=== PATIENT | female | born 1965 | race Caucasian/White ===

== ENCOUNTER 2023-11-06 15:19 | Outpatient (OUT) | payer OTHER, SELFPAY | END 2023-11-06 15:20 | disposition home or self-care (01) | LOC: SLEEP 15:19 | DX: G47.33 Obstructive sleep apnea (adult) (pediatric) (principal) | CPT/HCPCS: 95806 ==

== ENCOUNTER 2023-11-14 08:54 | Outpatient (OUT) | payer OTHER, SELFPAY ==
--- NOTE | 2023-11-14 09:00 | XR_ITS ---
The [address] [address] Patient Name: DIPAK MARKHAM MRN: [id number] date: 1965 Sex: F Assigned Patient Location: [facility] Current Patient Location: [facility] Accession/Order Number: [id number] Exam Date: 11/14/2023 09:01 Report Date: 11/14/2023 09:48 At the request of: CHRISTI HARRIS Procedure: XR elbow RT min 3V PROCEDURE: XR elbow RT min 3V, XR shoulder RT min 2V HISTORY: Right Elbow Pain , right shoulder pain, fall COMPARISON: None. FINDINGS: BONES:Narrowing of the acromioclavicular joints with prominent cephalad projecting osteophytes. Small undersurface osteophytes. Unremarkable humeral head and glenoid. Normal appearance of the elbow joint. SOFT TISSUES:No visible soft tissue swelling. EFFUSION:None visible. OTHER: Negative. XR/XR elbow RT min 3V IMPRESSION: 1. No acute bone abnormality of the right shoulder and right elbow. 2. Mild degenerative changes of the acromioclavicular joint. Electronically authenticated by: JACLYN POWERS Date: 11/14/2023 09:48
--- NOTE | 2023-11-14 09:00 | XR_ITS ---
The [address] [address] Patient Name: DIPAK MARKHAM MRN: [id number] date: 1965 Sex: F Assigned Patient Location: [facility] Current Patient Location: [facility] Accession/Order Number: [id number] Exam Date: 11/14/2023 09:01 Report Date: 11/14/2023 09:48 At the request of: CHRISTI HARRIS Procedure: XR shoulder RT min 2V PROCEDURE: XR elbow RT min 3V, XR shoulder RT min 2V HISTORY: Right Elbow Pain , right shoulder pain, fall COMPARISON: None. FINDINGS: BONES:Narrowing of the acromioclavicular joints with prominent cephalad projecting osteophytes. Small undersurface osteophytes. Unremarkable humeral head and glenoid. Normal appearance of the elbow joint. SOFT TISSUES:No visible soft tissue swelling. EFFUSION:None visible. OTHER: Negative. XR/XR shoulder RT min 2V IMPRESSION: 1. No acute bone abnormality of the right shoulder and right elbow. 2. Mild degenerative changes of the acromioclavicular joint. Electronically authenticated by: JACLYN POWERS Date: 11/14/2023 09:48
== END 2023-11-14 08:55 | disposition home or self-care (01) ==
PROVIDERS: Visit Provider Nurse Practitioner Family
DX: M25.511 Pain in right shoulder (principal); M25.521 Pain in right elbow
CPT/HCPCS: 73030; 73080

== ENCOUNTER 2023-11-21 08:51 | Outpatient (OUT) | payer OTHER, SELFPAY ==
--- NOTE | 2023-11-21 09:05 | XR_ITS ---
The [address] [address] Patient Name: DIPAK MARKHAM MRN: [id number] date: 1965 Sex: F Assigned Patient Location: [facility] Current Patient Location: [facility] Accession/Order Number: [id number] Exam Date: 11/21/2023 09:12 Report Date: 11/21/2023 09:44 At the request of: CHRISTI HARRIS Procedure: XR ribs RT min 3V w CXR1V EXAMINATION: XR ribs RT min 3V w CXR1V HISTORY: Status post fall COMPARISON: No relevant comparison available. FINDINGS: LUNGS: No significant pulmonary parenchymal abnormalities. PLEURA: No pneumothorax, effusion, or pleural thickening. MEDIASTINUM: No visible mass or adenopathy. CARDIAC: No cardiomegaly or cardiac silhouette abnormality. RIBS: No acute rib fracture OTHER: Negative. XR/XR ribs RT min 3V w CXR1V IMPRESSION: No acute rib fracture Clear lungs Electronically authenticated by: MARY WARD Date: 11/21/2023 09:44
--- OUTSIDE RECORDS SUMMARY | 2023-11-21 09:11 | XMS_ITS | CCD ---
Author Organization [facility] Inform ion [facility] Care Team Providers Care Salesperson [employer] Name Role Phone April Clemens DO Primary Care Provider [phone] JULIO MAYA Referring Unavailable KESIRI GIBBONS Primary Care Unavailable JAVON RODRIGUEZ Referring Unavailable IDA, SIRI Primary Care Unavailable APRIL CLEMENS Attending Unavailable TONY GR Attending Unavailable FRANK, TONY Delgado Referring Unavailable GOPAL BISHOP Attending Unavail able GRTONY Referring Unavailable GR, TONY Delgado Attending Unavailable GR, TONY Delgado Referring Unavailable GR, TONY Delgado Attending Unavailable GR, TONY Delgado Referring Unavailable GR, TONY Delgado Attending Unavailable GR, TONY Delgado Referring Unavailable GR, TONY Delgado Referring Unavailable KAMPFERJAVON Attending Unavailable KAMPFER, JAVON Attending Unavailable KAMPFER, JAVON Referring Unavailable KAMPFER, JAVON Attending Unavailable GR, TONY Delgado Attending Unavailable GR, TONY Delgado Attending Unavailable KAMPFER, JAVON Attending Unavailable LISSETTE ALVA Attending Unavailable KAMPFER, JAVON Referring Unavailable KAMPFER, JAVON Attending Unavailable KAMPFER, JAVON Referring Unavailable KAMPFER, JAVON Referring Unavailable Allergies Allergy Classification Reported Allergen(s) Allergy Type Date of Onset Reaction(s) Facility (2 sources) Penicillin G Drug Allergy 1 Rash [facility] Work Phone: (1 source) Penicillins; Translations: [PENICILLINS] Propensity to adverse reactions to drug (disorder) 0 [facility] Medications Current Medications Medication Drug Class(es) Dates Sig (Normalized) Sig (Original) [id number] 200 actuat albuterol 0.09 mg/actuat metered dose inhaler (2 sources) beta2-Adrenerg ic Agonist Start: 3 take 1 puff(s) by mouth every four hours for wheezing albuterol HFA 90 mcg/act inhaler Indications: Chronic obstructive pulmonary disease, unspecified COPD type (CMS/HCC) INHALE 1 PUFF BY MOUTH EVERY 4 (FOUR) HOURS IF NEEDED FOR WHEEZING OR SHORTNESS OF BREATH. 18 g 3 04/29/2023 Active 60 actuat budesonide 0.16 mg/actuat / formoterol fumarate 0.0045 mg/actuat metered dose inhaler (2 sources) Corticosteroid , beta2-Adrenerg ic Agonist Start: 3 Symbicort 160-4.5 MCG/ACT inhaler Indications: Chronic obstructive pulmonary disease, unspecified COPD type (CMS/HCC) Inhale 2 puffs every 12 (twelve) hours. 3 each 3 01/30/2023 Active citalopram 40 mg oral tablet (2 sources) Serotonin Reuptake Inhibitor Start: 4 take 1 tablet by mouth once daily citalopram (CeleXA) 40 MG tablet Indications: Recurrent major depression in partial remission (HCC) (CMS/HCC) TAKE 1 TABLET ORALLY ONCE A DAY 90 tablet 1 07/24/2023 Active fexofenadine hydrochloride 180 mg oral tablet (2 sources) Histamine-1 Receptor Antagonist fexofenadine (Allegr a) 180 MG tablet 1 (one) time each day at the same time. 0 Active 1 ml guselkumab 100 mg/ml auto-injector (2 sources) Interleukin-23 Antagonist Tremfya 100 MG/ML injection INJECT 100MG UNDER THE SKIN AT WEEK 4 AND THEN EVERY 8 WEEKS THEREAFTER 0 Active hydroCHLOROthiazide 50 mg oral tablet (2 sources) Thiazide Diuretic hydroCHLOROthiazide (HYDRODiuril) 50 MG tablet 1 (one) time each day at the same time. 0 Active Problems Active Problems Problem Classification Problem Date Documented Date Episodic/Chronic Anxiety disorders (2 sources) Generalized anxiety disorder; Translations: [Generalized anxiety disorder] Onset: 08-24-2020 03-06-2023 Chronic Chronic obstructive pulmonary disease and bronchiectasis (2 sources) Chronic obstructive lung disease; Translations: [Chronic obstructive pulmonary disease, unspecified] Onset: 08-24-2020 03-06-2023 Chronic Essential hypertension (2 sources) Essential hypertension; Translations: [Essential (primary) hypertension] Onset: 07-09-2016 03-06-2023 Chronic Fracture of lower limb (5 sources) Closed fracture of lateral malleolus; Translations: [Nondisplaced fracture of lateral malleolus of left fibula, initial encounter for closed fracture] Onset: 07-17-2023 07-17-2023 Episodic Immunity disorders (2 sources) Drug-induced immunodeficiency ; 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] Onset: 02-24-2021 03-06-2023 Chronic Osteoarthritis (2 sources) Arthritis of right knee; Translations: [Unilateral primary osteoarthritis, right knee] Onset: 12-29-2019 03-06-2023 Chronic Other aftercare (2 sources) Patient encounter status; Translations: [Encounter for other orthopedic aftercare] Onset: 07-17-2023 07-17-2023 Episodic Other aftercare (1 source) Other [employer] (current) drug therapy; Translations: [Other [place] (current) drug therapy] Onset: 10-02-2023 Episodic Other inflammatory condition of skin (2 sources) Plaque psoriasis; Translations: [Psoriasis vulgaris] Onset: 05-17-2020 03-06-2023 Chronic Other inflammatory condition of skin (2 sources) Psoriatic arthritis; Translations: [Arthropathic psoriasis, unspecified] Onset: 06-29-2020 03-06-2023 Chronic Other lower respiratory disease (1 source) Shortness of breath; Translations: [Shortness of breath] Onset: 10-04-2023 Episodic Other nervous system disorders (2 sources) Chronic pain; Translations: [Other chronic pain] Onset: 10-30-2017 03-06-2023 Chronic Other non-traumatic joint disorders (1 source) Ankle pain; Translations: [Pain in left ankle and joints of left foot] 08-08-2023 Episodic Other nutritional; endocrine; and metabolic disorders (2 sources) Morbid obesity; Translations: [Morbid (severe) obesity due to excess calories] Onset: 03-06-2023 03-06-2023 Chronic Other nutritional; endocrine; and metabolic disorders (1 source) Abnormal weight gain; Translations: [Abnormal weight gain] Onset: 10-04-2023 Episodic Residual codes; unclassified (1 source) Localized edema; Translations: [Localized edema] Onset: 10-04-2023 Episodic Substance-related disorders (2 sources) Tobacco dependence syndrome; Translations: [Nicotine dependence, cigarettes, with unspecified nicotine-induced disorders] Onset: 03-06-2023 03-06-2023 Chronic Past or Other Problems Problem Classification Problem Date Documented Da te Episodic/Chronic Diabetes mellitus without complication (2 sources) Prediabetes; Translations: [Prediabetes] Onset: 03-06-2023 03-06-2023 Episodic Spondylosis; intervertebral disc disorders; other back problems (4 sources) Right side sciatica; Translations: [Sciatica, right side] Onset: 07-09-2016 03-06-2023 Episodic Results Test Name Value Interpretation Reference Range Facility CT LUNG SCREENING LOW DOSEon 11-15-2023 CT LUNG SCREENING LOW DOSE This is a summary report. The complete report is available in the patient's medical record. If you cannot access the medical record, please contact the sending organization for a detailed fax or copy. \LOW DOSE LUNG CANCER SCREENING PROTOCOL CT CHEST WITHOUT IV CONTRAST: HISTORY: NICOTINE DEPENDENCE COMPARISON: TECHNIQUE: Low dose lung cancer screening protocol spiral CT of the chest without IV contrast. Axial, coronal and sagittal reformatted images were reviewed. FINDINGS: The right lung parenchyma shows a small area of atelectasis and scarring base medial aspect right lower lobe. No other focal parenchymal abnormalities no pleural effusions. No pneumothoraces. The left lung parenchyma shows no focal parenchymal abnormalities no pleural effusions. No pneumothoraces. The heart and great vessels are intact. No significant periaortic, pretracheal, parahilar or subcarinal adenopathy. The [id number] visualized abdominal contents are unremarkable. The gallbladder is surgically absent. IMPRESSION: Impression: LUNG-RADS CATEGORY 1: NO NODULE/S AND / OR DEFINITELY BENIGN NODULE/S. NEGATIVE--CONTINUE ANNUAL CT LUNG SCREENING IN [address] scans at this facility use dose modulation, iterative reconstruction, and/or weight based dosing when appropriate to reduce radiation dose to as low as reasonably achievable. ELECTRONICALLY SIGNED BY: Jadiel Reyes MD Normal Not Available QUANTIFERON TB GOLDon 2023 MITOGEN MINUS NIL >9.96 Normal >=0.50 [facility] Comment on above: Performed By: #### Q TBG #### [facility] ([id number]) [address] [place] [address] NIL RESULT 0.04 IU/mL Normal <=8.00 [facility] Comment on above: Performed By: #### Q TBG #### [facility] ([id number]) [address] [place] [address] TB INTERPRETATION See below Normal [facility] Comment on above: Result Comment: NOTE Infection with M. tuberculosis complex is unlikely. If latent tuberculosis infection is highly suspected, a negative result does not rule out the infection. Specimens from immunocompromised patients and those <5 years of age may show false negative results. In case of a contact investigation, please repeat 8-12 weeks after a known exposure. Test Performed By: [place] [address] Reproduction Machine Loader: Christi Hebert III #[id number] Performed By: #### Q TBG #### [facility] ([id number]) [address] [place] [address] TB RESULT Negative Normal [facility] Comment on above: Performed By: #### Q TBG #### [facility] ([id number]) [address] [place] [address] TB1 AG MINUS NIL <0.00 Normal <0.35 [facility] Comment on above: Performed By: #### Q TBG #### [facility] ([id number]) [address] [place] [address] TB2 AG MINUS NIL 0.00 IU/mL Normal <0.35 [facility] Comment on above: Performed By: #### Q TBG #### [facility] ([id number]) [address] [place] [address] XR CHEST 2 VIEWSon 4 XR CHEST 2 VIEWS EXAMINATION: XR CHES T 2 VIEWS HISTORY: Shortness of breath. Weight gain. TECHNIQUE: Frontal and lateral views of the chest. COMPARISON: None available FINDINGS: Heart size is mildly enlarged. Pulmonary vascular congestion. Coarsening of the pulmonary interstitium. Mild hyperinflation of the lungs. No pneumothorax, pleural effusion, or consolidation. No acute osseous abnormality. IMPRESSION: Cardiomegaly and pulmonary vascular congestion may represent fluid overload/CHF. Findings suggesting COPD. ELECTRONICALLY SIGNED BY: Junaid Schwarz, DO Normal Not Available [facility] US LOWER EXTREMITY VENO US DUPLEX LEFTon 08-30-2023 VAS US LOWER EXTREMITY VENOUS DUPLEX LEFT EXAM: VAS US LOWER EXTREMITY VENOUS DUPLEX LEFT TECHNIQUE: LEFT lower extremity venous duplex exam was performed. HISTORY: DVT. FINDINGS: The common femoral, femoral, deep femoral, popliteal and calf veins were evaluated for deep venous thrombosis. The veins were evaluated with color Doppler imaging, compression and augmentation if possible. Thrombus is again identified within the popliteal vein. Otherwise no sonographic evidence of deep venous thrombosis. IMPRESSION: Persistent thrombus within the popliteal vein. ELECTRONICALLY SIGNED BY: Junaid Schwarz, Normal Not Available [facility] US LOWER EXTREMITY VENOUS DUPLEX LEFT HISTORY: Left ankle swelling. COMPARISON: None. TECHNIQUE: The left lower extremity veins were evaluated with color Doppler, grayscale imaging, and spectral analysis while using compression and augmentation when possible. RESULT: Abnormal compression of the left popliteal vein, partially occlusive. Otherwise no evidence for DVT or SVT within the left leg. IMPRESSION: Nonocclusive DVT involving the left popliteal vein. Results were called to Tony Gr by [facility] at time of the study. ELECTRONICALLY SIGNED BY: Fernando Ricks MD Normal Not Available Cast / Splint / Fxon 024 IFTIKHAR Delaney 08/09/2023 9:51 AM Cast / Splint / Fx Date/Time: 08/09/2023 9:49 AM Performed by: IFTIKHAR Delaney Authorized by: IFTIKHAR Delaney Consent given by: patient Timeout: Immediately prior to procedure a time out was called to verify the correct patient, procedure, equipment, marketing support coordinator and site/side marked as required Injury Location details: left ankle Fracture type: lateral malleolus fracture Pre-procedure assessment Distal perfusion: normal Distal sensation: normal Range of motion: normal Procedure Manipulation performed? no manipulation performed Immobilization: splint Splint/Brace type: cam boot Post-procedure assessment neurovascularly intact Range of motion: unchanged Patient tolerance: patient tolerated the procedure well with no immediate complications Comments A [id number] Walking Boot, Pneumatic and/or Vacuum, With or Without Joints, Prefabricated, Off the Shelf was dispensed and applied at this visit. Due to the patient's diagnosis and related symptoms this is medically necessary for treatment. The function of this device is to restrict and limit motion, provide stabilization, immobilization, and compression to the affected area. The goals and function-of this device were explained in detail to the patient. Upon gait analysis, the device appeared to be fitting well and the patient states that the device is comfortable at this time. The patient was shown and told in detail how to properly wear and care for the device. They were able to apply the device properly themselves and able to ambulate without distress. At the time the device was dispensed, it was suitable for the condition and was not substandard. No guarantees were given and precautions were reviewed. Written instructions and warranty information was given along with the list of the current Durable Medical Equipment Supplier Guidelines. The patient was given a patient education sheet regarding signs and symptoms of a DVT and was instructed to call the doctor immediately if they experience any symptoms. [facility] XR FOOT 3+ VIEWS LEFTon 11-0 XR FOOT 3+ VIEWS LEFT EXAM: XR FOOT 3+ VIEWS LEFT COMPARISON: None available HISTORY: chronic left foot pain, history of psoriatic arthritis TECHNIQUE: 3 views of the foot obtained. FINDINGS: No acute fracture or dislocation. Joint spaces are preserved. No osseous erosions. Small posterior and plantar calcaneal enthesophytes. Soft tissues are within normal limits. IMPRESSION: No acute osseous abnormality. ELECTRONICALLY SIGNED BY: Junaid Schwarz, DO Normal Not Available Encounters Encounter Date Encounter Type Care Provider Facility Start: 11-15-2023 End: 11-16-2023 ambulatory JAVON RODRIGUEZ Not Available Start: 11-04-2023 End: 11-04-2023 ambulatory JAVON RODRIGUEZ Not Available Start: 10-21-2023 End: 10-22-2023 ambulatory LISSETTE ALVA Not Available Start: 10-11-2023 End: 10-11-2023 ambulatory JAVON RODRIGUEZ Not Available Start: 10-04-2023 End: 10-05-2023 ambulatory JAVON RODRIGUEZ [facility] Start: 10-02-2023 End: 10-03-2023 ambulatory JULIO MAYA [facility] Start: 09-13-2023 End: 09-13-2023 ambulatory TONY Danny FRANK Not Available Start: 09-06-2023 End: 09-06-2023 ambulatory TONY GR Not Available Start: 09-04-2023 End: 09-04-2023 ambulatory JAVON RODRIGUEZ Not Available Start: 09-02-2023 End: 09-03-2023 ambulatory JAVON RODRIGUEZ Not Available Start: 08-30-2023 End: 08-31-2023 ambulatory TONY GR Not Available Start: 08-30-2023 End: 08-31-2023 ambulatory TONY Danny FRANK Not Available Start: 08-09-2023 Chart abstracting Tony BUITRAGO Work Phone: [facility] Start: 08-09-2023 End: 08-10-2023 ambulatory TONY Danny FRANK Not Available Start: 08-09-2023 End: 08-09-2023 Postop follow up visit related to original px Tony Gr PA Work Phone: [facility] Comment on above: Closed nondisplaced fracture of lateral malleolus of left fibula with routine healing, subsequent encounter (Primary Dx); Left lateral ankle pain Start: 07-26-2023 End: 07-27-2023 ambulatory TONY Danny FRANK Not Available Start: 07-17-2023 End: 07-18-2023 ambulatory TONY Danny FRANK Not Available Start: 07-02-2023 End: 07-02-2023 ambulatory APRIL Taveras LATHA Not Available Procedures Date Procedure Procedure Detail Performing Clinician Start: 08-09-2023 CAST / SPLINT / FX Edvin bebeto BUITRAGO Work Phone: Start: 03-07-2021 Mammography Tony BUITRAGO Work Phone: Start: 03-09-1999 H/O: hysterectomy H/O: hysterectomy Tony BUITRAGO Work Phone: Plan of Treatment Date Care Activity Detail Author Start: 09-10-2023 End: 09-10-2023 Patient encounter procedure 09/10/2023 8:45 AM EDT Office Visit [facility] [address] [id number] Jovan Hernandez, DPHermes [address] [place], [place] [id number] [facility] Start: 08-09-2023 End: 08-09-2023 Patient encounter procedure 08/09/2023 9:15 AM EST Office Visit [facility] [address] [facility] [address] [place] [id number] Tony Gr PA [address] [facility] [address] [place] [address] [facility] Start: 06-01-2022 Screening for malignant neoplasm of colon [facility] Start: 03-07-2022 Screening for malignant neoplasm of breast Mammogram [facility] Start: 1965 Screening for malignant neoplasm of colon [facility] XR Ankle - left 3 Views XR ankle 3+ views left Imaging Routine Closed nondisplaced fracture of lateral malleolus of left fibula with routine healing, subsequent encounter 08/09/2023 9:05 AM EST [facility] Work Phone: Immunizations Immunization Date Immunization Notes Care Provider [facility] 05-06-2023 influenza, injectabl e, quadrivalent, preservative free Tony BUITRAGO Work Phone: [facility] 08-09-2022 influenza, injectabl e, quadrivalent, preservative free Tony BUITRAGO Work Phone: [facility] 03-27-2022 SARS-COV-2 (COVID-19 ) vaccine, mRNA, spike protein, LNP, bivalent, preservative free, 30 mcg/0.3 mL dose, nhung-sucrose formulation Tony BUITRAGO Work Phone: [facility] 04-04-2021 influenza, injectabl e, quadrivalent, preservative free Tony BUITRAGO Work Phone: [facility] 10-06-2020 Pfizer Purple Cap SARS-CoV-2 Vaccination Tony BUITRAGO Work Phone: [facility] 09-15-2020 Pfizer Purple Cap SARS-CoV-2 Vaccination Tony BUITRAGO Work Phone: [facility] 03-08-2020 influenza, injectabl e, quadrivalent, preservative free Tony BUITRAGO Work Phone: [facility] 08-16-2019 zoster vaccine recombinant M sanjay BUITRAGO Work Phone: [facility] 06-10-2019 zoster vaccine recombinant M sanjay BUITRAGO Work Phone: [facility] 03-20-2019 influenza, injectabl e, quadrivalent, preservative free Tony BUITRAGO Work Phone: [facility] 03-20-2019 pneumococcal conjuga te vaccine, 13 valent Tony BUITRAGO Work Phone: [facility] 06-01-2018 Influenza, injectabl e, Madin Julia Canine Kidney, preservative free, quadrivalent Tony BUITRAGO Work Phone: [facility] 06-01-2018 tetanus toxoid, redu fabiola diphtheria toxoid, and acellular pertussis vaccine, adsorbed Tony BUITRAGO Work Phone: [facility] 07-03-2017 Influenza, injectabl e, Madin Julia Canine Kidney, preservative free, quadrivalent Tony BUITRAGO Work Phone: [facility] 04-16-2016 seasonal influenza, intradermal, preservative free Tony BUITRAGO Work Phone: [facility] 04-23-2015 influenza, seasonal, injectable, preservative free Tony BUITRAGO Work Phone: [facility] 04-23-2015 pneumococcal polysaccharide vaccine, 23 valent Tony BUITRAGO Work Phone: [facility] 06-29-2002 hepatitis B vaccine, adult dosage Tony BUITRAGO Work Phone: [facility] 01-14-2002 hepatitis B vaccine, adult dosage Tony BUITRAGO Work Phone: [facility] 12-12-2001 hepatitis B vaccine, adult dosage Tony Gr PA Work Phone: [facility] Payers Date Payer Category Payer Managed Care HMO (unspecified) LUIS SMITH [id number] 2021-Present [address] [place] [address] O [id number] 2021 Private Health Insurance [id number] 1966 Unknown [id number] 2.16.840.1.052702.3.579.2. 1285 1966 Unknown [id number] 2.16.840.1.992285.3.579.2. 1285 1966 Unknown [id number] 2.16.840.1.927066.3.579.2. 1258 1966 Unknown [id number] 2.16.840.1.377718.3.579.2. 1258 1966 Unknown [id number] 2.16.840.1.923550.3.579.2. 1258 1966 Unknown [id number] 2.16.840.1.344602.3.579.2. 1258 1966 Unknown [id number] 2.16.840.1.830938.3.579.2. 1258 1966 Unknown [id number] 2.16.840.1.361991.3.579.2. 1258 1966 Unknown [id number] 2.16.840.1.548715.3.579.2. 1258 1966 Unknown [id number] 2.16.840.1.083988.3.579.2. 1258 1966 Unknown [id number] 2.16.840.1.908743.3.579.2. 1258 1966 Unknown [id number] 2.16.840.1.070932.3.579.2. 9 1966 Unknown [id number] 2.16.840.1.310094.3.579.2. 1258 1966 Unknown [id number] 2.16.840.1.035217.3.579.2. 9 1966 Unknown [id number] 2.16.840.1.141714.3.579.2. 1258 1966 Unknown [id number] 2.16.840.1.063247.3.579.2. 1258 1966 Unknown [id number] 2.16.840.1.246014.3.579.2. 1258 1966 Unknown [id number] 2.16.840.1.845194.3.579.2. 1258 1966 Unknown [id number] 2.16.840.1.863237.3.579.2. 1258 1966 Unknown [id number] 2.16.840.1.800540.3.579.2. 1258 1966 Unknown [id number] 2.16.840.1.204898.3.579.2. 1258 1966 Unknown [id number] 2.16.840.1.152482.3.579.2. 1258 1966 Unknown [id number] 2.16.840.1.079931.3.579.2. 1258 1966 Unknown [id number] 2.16.840.1.516927.3.579.2. 1258 1966 Unknown [id number] 2.16.840.1.583235.3.579.2. 1259 Social History Date Type Detail Facility Start: 08-06-2023 Tobacco smoking status WYIS Smokes t obacco daily [facility] History of tobacco use [facility] Start: 07-02-2023 End: 08-06-2023 Cigarettes smoked current (pack per day) - Reported 1 [facility] Start: 08-06-2023 Tobacco use and exposure Smoke less tobacco non-user [facility] Start: 08-06-2023 Alcohol intake Ex-drinker (finding) [facility] Start: 05-06-2023 End: 07-02-2023 Humiliation, Afraid, Rape, and Kick questionnaire [HARK] [facility] Within the last year , have you been afraid of your partner or ex-partner? No [facility] Do you belong to any clubs or organizations such as caodaism groups, unions, fra[employer]LAUNCH or athletic groups, or school groups? Yes [facility] Are you now , , , , never or living with a partner? [facility] How often to you hav e a drink containing alcohol? Monthly or less [facility] How many standard dr inks containing alcohol do you have on a typical day? 1 or 2 [facility] How often do you hav e 6 or more drinks on 1 occasion? Never [facility] How hard is it for y ou to pay for the very basics like food, housing, medical care, and heating Not very hard [facility] Do you feel stress - tense, restless, nervous, or anxious, or unable to sleep at night because your mind is troubled all the time - these days [OSQ] Only a little [facility] For an average week in the last 30 days, how many days per week did you engage in moderate to strenuous exercise (like walking fast, running, jogging, dancing, swimming, biking, or other activities that cause a light or heavy sweat)? Patient refused [facility] (I/We) worried whehung er (my/our) food would run out before (I/we) got money to buy more. Never true [facility] Start: 08-06-2023 Tobacco Comment Everyday , 6-1 0 cigs/day. Smokes 31-60 mins after waking up. Thinking about quitting. [facility] Start: 03-06-2023 Alcohol Comment caffeine: 1-2 cups per day [facility] Start: 1965 Sex Assigned At Not on file [facility] Start: 09-12-2022 Gender identity Identifies as female gender (finding) [facility] History of Present illness Narrative 08-09-2023 IFTIKHAR Delaney - 08/09/2023 9:15 AM EST Note Date & Type Note Facility 08-09-2023 History of Presen t illness Narrative Associated Order(s): Cast / Splint / Fx Post-Procedure Diagnose(s): Closed nondisplaced fracture of lateral malleolus of left fibula with routine healing, subsequent encounter Images from the original note were not included. HISTORY OF PRESENT ILLNESS: FRACTURE VISIT Dipak Markham is an 57 y.o. @ female (EST PT) S/P (L) ANKLE, DISTAL FIB FX 07/16/22 (3WKS 3DAYS) ; DX & SLC APPLIED 07/17/23 (3WKS 1DAY)- DOING WELL- PT DOES WB OCCASIONALLY; STATES SHE LIVES ON HER OWN AND NEEDS TO WB SOME- PRESENT IN WHEEL CHAIR TODAY- MINIMAL DISCOMFORT- INTERMITTENT SWELLING XRAY LT ANKLE TODAY CHANGE 08/09/23 XRAY LT ANKLE CHANGE 08/09/23 XRAYS THRU CAST 07/26/23 IN CHANGE / EPIC INITIAL XRAYS, (L) ANKLE & (L) FOOT 07/17/23 IN CHANGE / EPIC SLC APPLIED 07/17/23 NWB W/ CRUTCHES 07/17/23 H/O INJURY : STATES SHE JUMPED OFF HER WASHER AND TWISTED HER ANKLE / FELL. ALLERGIES: Allergies Allergen Reactions Penicillin G Rash Other Reaction(s): rash HOME MEDICATIONS: Current Outpatient Medications Medication Instructions albuterol HFA 90 mcg/act inhaler INHALE 1 PUFF BY MOUTH EVERY 4 (FOUR) HOURS IF NEEDED FOR WHEEZING OR SHORTNESS OF BREATH. citalopram (CeleXA) 40 MG tablet TAKE 1 TABLET ORALLY ONCE A DAY fexofenadine (Moriah) 180 MG tablet Every 24 hours hydroCHLOROthiazide (HYDRODiuril) 50 MG tablet Every 24 hours Symbicort 160-4.5 MCG/ACT inhaler 2 puffs, Inhalation, Every 12 hours Tremfya 100 MG/ML injection INJECT 100MG UNDER THE SKIN AT WEEK 4 AND THEN EVERY 8 WEEKS THEREAFTER Review of Systems XR ankle 3+ views left Imaging Result: AP lateral and mortise view of The casted left ankle showed a significant increase in callus formation to the distal fibular fracture compared to prior x-rays. Talus is well centered in the talar dome and ankle mortise was well preserved without instability. There was no acute bony process including but not limited to displacement of current fracture and/or fracture. Impression: Healing fracture left distal fibula PHYSICAL EXAM: Foot/Ankle Musculoskeletal Exam Gait Gait is non-ambulatory. Assistive device: wheelchair Gait additional comments: Cast in good repair. Some wear to plantar surface, removed. Inspection Right Edema: moderate Left Left foot/ankle inspection is normal. Erythema: none Effusion: none Edema: mild Ecchymosis: none Deformity: none Alignment: normal Palpation Left Left foot/ankle palpation is unremarkable. Increased warmth: none Masses: none Tenderness: present Tenderness comment: mild soreness distal fibula, compartments soft. no calf tenderness. Range of Motion Left Left foot/ankle range of motion is normal and full. Strength Left Left foot/ankle strength is normal. Tibialis anterior: 5/5. Extensor hallucis longus: 5/5. Flexor hallucis longus: 5/5. Gastroc/soleus: 5/5. Neurovascular Left Left foot/ankle neurovascular exam is normal. Pulses - PT: normal Posterior tibial: 2+ Capillary refill: warm and well-perfused Dorsum foot: normal Lateral foot: normal Plantar foot: normal Achilles: 2/4 Clonus: normal General Constitutional: appears stated age Labored breathing: no Psychiatric: normal mood and affect Neurological: oriented x3 Skin: intact (+ dry skin consistent with recent cast.) Lymphadenopathy: none Cast / Splint / Fx Date/Time: 08/09/2023 9:49 AM Performed by: IFTIKHAR Delaney Authorized by: IFTIKHAR Delaney Consent given by: patient Timeout: Immediately prior to procedure a time out was called to verify the correct patient, procedure, equipment, marketing support coordinator and site/side marked as required Injury Location details: left ankle Fracture type: lateral malleolus fracture Pre-procedure assessment Distal perfusion: normal Distal sensation: normal Range of motion: normal Procedure Manipulation performed? no manipulation performed Immobilization: splint Splint/Brace type: cam boot Post-procedure assessment neurovascularly intact Range of motion: unchanged Patient tolerance: patient tolerated the procedure well with no immediate complications Comments A [id number] Walking Boot, Pneumatic and/or Vacuum, With or Without Joints, Prefabricated, Off the Shelf was dispensed and applied at this visit. Due to the patient's diagnosis and related symptoms this is medically necessary for treatment. The function of this device is to restrict and limit motion, provide stabilization, immobilization, and compression to the affected area. The goals and function-of this device were explained in detail to the patient. Upon gait analysis, the device appeared to be fitting well and the patient states that the device is comfortable at this time. The patient was shown and told in detail how to properly wear and care for the device. They were able to apply the device properly themselves and able to ambulate without distress. At the time the device was dispensed, it was suitable for the condition and was not substandard. No guarantees were given and precautions were reviewed. Written instructions and warranty information was given along with the list of the current Durable Medical Equipment Supplier Guidelines. The patient was given a patient education sheet regarding signs and symptoms of a DVT and was instructed to call the doctor immediately if they experience any symptoms. Orders Placed This Encounter Procedures Cast / Splint / Fx This order was created via procedure documentation XR ankle 3+ views left Order Specific Question: Is the patient ? Answer: No Order Specific Question: Reason for exam: Answer: PAIN ASSESSMENT: ICD-10-CM 1. Closed nondisplaced fracture of lateral malleolus of left fibula with routine healing, subsequent encounter S82.65XD XR ankle 3+ views left Cast / Splint / Fx 2. Left lateral ankle pain M25.572 PLAN: X-ray with stable position and alignment of fracture, no significant callus but clinical exam pain noted to be significantly improve. Recommend continued ice and elevation. Patient has multiple spider veins, chronic leg edema bilateral legs. He will be given the name of a vascular surgeon at her request to discuss potential vein treatment on her legs. We discussed the need for nonweightbearing, continued ice and elevation and follow up in 3 weeks, with repeat x-ray consider weight-bearing at that time and boot and wean from boot as symptoms allow. Patient verbalized understanding had no further concerns or questions. Discussed fracture care and treatment. Answered all questions. Also discussed risks for non-union/ delay healing and malunion. Questions answered in laymen terms at the bedside. The diagnosis, home exercise plan and any ongoing restrictions/ recommendations reviewed. If unable to be reached in office, I recommend evaluation at nearest Emergency Room if any symptoms worsened or new symptoms develop for requiring urgent evaluation. IFTIKHAR Delaney documented in this encounter [facility] Evaluation note Note Date & Type Note Facility Evaluation note Diagnosis Closed nondisplaced fracture of lateral malleolus of left fibula with routine healing, subsequent encounter- Primary Left lateral ankle pain documented in this encounter [facility] Summary Purpose Family History No Family History Records FoundNo Family History Records Found Advance Directives No Advanced Directives Records FoundNo Advanced Directives Records Found Additional Source Comments Care Teams (unrecognized sec tion and content) [employer] Relationship Specialty Start Date End Date April Clemens DO [address] [place] [address] PCP - General Family Medicine 11/06/22 [employer] Relationship Specialty Start Date End Date April Clemens DO [address] [place] [address] PCP - General Family Medicine 11/06/22 Reason for Visit (unrecogniz ed section and content) Reason Comments Pain INFORMATION SOURCE (unrecogn ized section and content) DATE CREATED AUTHOR 10/05/2023 [facility] DATE CREATED AUTHOR AUTHOR'S ORGANIZ ATION 11/21/2023 [facility] EPIC FOR RECORDS PERTAINING TO PATIENTS WHO ARE OR HAVE BEEN ENROLLED IN A CHEMICAL DEPENDENCY/SUBSTANCEABUSE PROGRAM, SOME INFORMATION MAY BE OMITTED. This clinical summary was aggregated from multiple sources. Caution should be exercised in using it in the provision of clinical care. This summary normalizes information from multiple sources, and as a consequence, information in this document may materially change the coding, format and clinical context of patient data. In addition, data may be omitted in some cases. CLINICAL DECISIONS SHOULD BE BASED ON THE PRIMARY CLINICAL RECORDS. [facility] [employer] [facility]. provides no warranty or guarantee of the accuracy or completeness of information in this document.
== END 2023-11-21 08:52 | disposition home or self-care (01) ==
LOC: RAD 08:52
PROVIDERS: Visit Provider Nurse Practitioner Family
DX: S20.211A Contusion of right front wall of thorax, initial encounter (principal)
CPT/HCPCS: 71101

== ENCOUNTER 2023-12-17 06:37 | Outpatient (OUT) | payer OTHER, SELFPAY ==
--- NOTE | 2023-12-17 06:39 | MR_ITS ---
[place] [id number] Patient Name: DIPAK MARKHAM MRN: [id number] date: 1965 Sex: F Assigned Patient Location: MRI Current Patient Location: Accession/Order Number: [id number] Exam Date: 12/17/2023 06:50 Report Date: 12/18/2023 07:42 At the request of: CHRISTI HARRIS Procedure: MR shoulder RT wo con EXAMINATION: MR shoulder RT wo con HISTORY: Right Shoulder Sprain ; right shoulder pain after falling COMPARISON: XR shoulder right 11/14/2023 TECHNIQUE: A variety of imaging planes and parameters were utilized for visualization of suspected pathology. Imaging was performed without or with contrast as indicated by examination type. FINDINGS: ROTATOR CUFF REGION CUFF TENDONS: Partial/near complete tear of supraspinatus tendon; no retraction. Complete tear and mild retraction of the subscapularis tendon. CUFF MUSCLES: Normal appearing muscles. DELTOID: Normal. No significant atrophy or tear. LONG BICEPS TENDON: No abnormal signal, attrition, or tear. LABRUM/BICEPS ANCHOR SUPERIOR: No visible labral tear or biceps anchor pathology. ANTERIOR/INFERIOR: No visible tear or attrition. POSTERIOR: No posterior labrum abnormality. CAPSULE Normal. No visible capsular laxity or thickening. 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 AC LIGAMENTS: Normal acromioclavicular ligament. CC LIGAMENTS: Normal coracoclavicular ligaments. ACROMION: Normal horizontal (Type I) configuration. SUBACROMIAL BURSA: Trace amount of free fluid. HYALINE CARTILAGE: Normal. No visible cartilage narrowing or focal defect. OTHER BONES: Prominent edema within superior aspect of humeral head suggesting bone bruising. OTHER OBSERVATIONS: Negative. No other significant findings or glenohumeral effusion. MR/MR shoulder RT wo con IMPRESSION: 1. Near complete tear of supraspinatus tendon; no retraction. 2. Complete tear and mild retraction of the subscapularis tendon. 3. No appreciable tear or displacement of the biceps tendon. 4. Prominent edema within superior aspect the humeral head favoring bone bruising/impaction injury. Electronically authenticated by: JACLYN POWERS Date: 12/18/2023 07:42
== END 2023-12-17 06:38 | disposition home or self-care (01) ==
LOC: MRI 06:37
PROVIDERS: Visit Provider Nurse Practitioner Family
DX: S43.491A Other sprain of right shoulder joint, initial encounter (principal); M75.121 Complete rotator cuff tear or rupture of right shoulder, not specified as traumatic; S46.811A Strain of other muscles, fascia and tendons at shoulder and upper arm level, right arm, initial encounter
CPT/HCPCS: 73221